=== PATIENT | male | born 1960 | race Caucasian/White ===

== ENCOUNTER 2020-02-01 08:31 | Day surgery (SDC) | payer BC ==
[2020-01-31 11:41] VITALS: BP 135/91
[2020-02-01] VITALS (17 sets, daily range): BP systolic 124–168; BP diastolic 78–100
[~2020-02-01] VITALS: Ht 180.3 cm; Wt 80.8 kg
[~2020-02-01 08:31] MED LIST: PHEN95TA44 PO
[2020-02-01] MEDS ORDERED: LACTATED RINGERS 1000ML 1,000 ML IV ONE (09:10)
[2020-02-01] MEDS: CEFTRIAXONE SODIUM 1 GM IVP SCH ×2 (09:30→12:10)
[2020-02-01] MEDS ORDERED: DEXAMETHASONE SOD PHOSPHATE 10MG/ML 1ML VIAL ONE (12:03)
[2020-02-01] MEDS ORDERED: LIDOCAINE PF 2% 5ML ABBOJECT ONE (12:03)
[2020-02-01] MEDS ORDERED: MIDAZOLAM HCL 1 MG/ML 2ML VIAL ONE (12:03)
[2020-02-01] MEDS ORDERED: SUCCINYLCHOLINE 200MG/10ML SYR ONE (12:03)
[2020-02-01] MEDS ORDERED: NEOSTIGMINE 5MG/5ML SYR IV ONE (12:04)
[2020-02-01] MEDS ORDERED: PROPOFOL 10 MG/ML 20ML VIAL IV ONE (12:04)
[2020-02-01] MEDS ORDERED: FENTANYL CITRATE PF 50 MCG/1 ML 2ML VIAL ONE ×4 (12:04→13:20)
[2020-02-01] MEDS ORDERED: ONDANSETRON HCL 4 MG/2 ML VIAL ONE (12:04)
[2020-02-01] MEDS ORDERED: ESMOLOL HCL 10 MG/ML 10 ML VIAL ONE (12:23)
[2020-02-01] MEDS ORDERED: OPIUM/BELLADONNA ALKALOIDS 1 EACH SUPP.RECT RC ONE (12:33)
[2020-02-01] MEDS ORDERED: MEPERIDINE-PF 25 MG/ML SYG ONE ×3 (13:44→14:22)
[2020-02-01] MEDS ORDERED: PHENAZOPYRIDINE HCL 200 MG TABLET ONE (14:54)
--- NOTE | 2020-02-01 15:00 | NUR ---
post op received pt post op. pt has vazquez bag with bright red urine, no blood clots noted and urine is clear. md aware and ok to discharge home. pt oriented to room and call light. will continue to monitor
--- NOTE | 2020-02-01 15:40 | NUR ---
discharge instructions given to pt and . both voiced understanding. vazquez bags sent with pt. pt refused to change vazquez bag. will continue to monitor pt.
== END 2020-02-01 15:40 | disposition home or self-care (01) ==
LOC: DAH 08:31
PROVIDERS: ATTEND Urology
DX: D49.4 Neoplasm of unspecified behavior of bladder (principal); R31.0 Gross hematuria; F17.200 Nicotine dependence, unspecified, uncomplicated; Z20.828 Contact with and (suspected) exposure to other viral communicable diseases
CPT/HCPCS: 52240; A4213; A4215; A4216; A4221; A4222; A4223 ×2; A4344; A4354; A4358; A4510; A4600; A4663; A5113; A6260; C9803; J0330; J0696; J1100; J2001; J2175 ×3; J2250; J2405; J2704; J2710; J3010 ×4; J3490; J7030; J7120 ×2; U0003